=== PATIENT | male | born 1960 | race Two or more races ===

== ENCOUNTER 2020-02-12 15:28 | Emergency (ER) | payer MEDICAID, SELFPAY ==
[2020-02-12 15:46] VITALS: BP 140/86; BP 155/97; PULSE 84; PULSE 90; RESP 16; TEMP 36.7; O2SAT 95; O2SAT 98; BMI 58.6
--- NOTE | 2020-02-12 16:33 | ED_ITS ---
HPI - Headache General Chief Complaint: Headache Stated Complaint: BLURRED VISION FROM [facility] Time Seen by Provider: 02/12/20 16:33 Source: patient Mode of arrival: ambulatory Limitations: no limitations History of Present Illness HPI Narrative: Last night had headache and noticed wavy vision in right vision MD elicited complaint: headache and migraine Pertinent past history: hypertension Onset (ago): hour(s) (12) Location: left and frontal Severity: moderate Quality & Timing: throbbing Relieving factors: other (ASA) Context: occurred at rest Related Data Previous Rx's Medication Instructions Recorded naproxen [Naprosyn] 500 mg PO BID #20 tab 02/12/20 Allergies Allergy/AdvReac Type Severity Reaction Status Date / Time FRUIT, SKINS Allergy Intermediate MOUTH Uncoded 01/15/20 16:24 ITCHING grapes, almonds, Allergy Unknown itchiness Uncoded 07/18/17 00:00 strawberries, of mouth, nausea Review of Systems Constitutional: Constitutional: Reports no additional constitutional complaints Eyes: Eyes: Reports no additional eye complaints ENT: Denies dizziness Cardiovascular: Cardiovascular: Reports no additional cardiovascular complaints Respiratory: Respiratory: Reports as per HPI Gastrointestinal: Gastrointestinal: Reports no additional gastrointestinal complaints Musculoskeletal: Musculoskeletal: Reports no additional musculoskeletal complaints Integumentary/Breasts: Skin/Breast: Denies rash Neurologic: Reports system reviewed and no additional complaints, except as documented, Denies dizziness and Denies Sensory deficit (Neuro) Psychiatric: Psychiatric: Denies anxiety [facility] Past Medical History Medical History (Updated 02/12/20 @ 18:27 by Poncho Alicia MD) Cardiomyopathy HTN (hypertension) Surgical History (Updated 02/12/20 @ 15:53 by Beatriz Bustamante) Hx of appendectomy Social History Social History Smoked in Last 30 Days: No Use of substances other than those prescribed or required for medical reasons: No Advance Directives: No Advance Directives Information Provided: Yes Physical Exam Vital Signs: Vital Signs: Vital Signs Temp Pulse Resp BP Pulse Ox 02/12/20 18:20 98.3 F 77 16 170/84 H 02/12/20 15:46 98.1 F 84 16 155/97 H 95 Body Mass Index 58.6 Const: General: healthy appearing Nutritional Appearance: average body habitus Orientation/consciousness: oriented to person and patient oriented x3 Limitations: no limitations HENMT: Head: Yes normal to inspection Ears: external ears normal General nose exam: Normal external nose present Mouth: Normal oral and palatal mucosa present and oropharynx normal Throat: Yes posterior oropharynx normal Eyes: General: appearance normal, both eyes and all related structures Neck: Other: supple Neck: Yes normal visual inspection Chest: Chest palpation & inspection: normal inspection of the chest Resp: Auscultation: clear to auscultation bilaterally Cardio: Jugular venous distension: no JVD Rate: regular rate Rhythm: regular rhythm Heart sounds: S1 normal heart sound present and S2 normal heart sound present GI: Inspection: Yes normal to inspection Palpation (GI): Soft to palpation, nontender and No hepatosplenomegaly present Auscultation: normal bowel sounds : General: Yes no CVA tenderness Back/Spine/Pelvis: Back: no CVA tenderness Skin: General skin exam: no rashes or lesions noted Neuro: General: oriented to person and patient oriented x3 Cranial nerves: Yes CN's II-XII intact bilaterally Motor exam (neuro): 5/5 motor strength present throughout Sensory Exam: No Sensory deficit (Neuro) Extrem: General: Yes normal to inspection Psych: Appearance: grossly normal Course Course Course Narrative: headache much improved will dc home MDM - Headache MDM Narrative Medical decision making narrative: history most consistent with migraine, no mass or bleed were found Differential Diagnosis Differential diagnosis: Likely migraine and headache Lab Data Attestation: I reviewed the patient's lab results. Result diagrams: 02/12/20 17:00 02/12/20 17:00 Labs: Lab Results 02/12/20 02/12/20 Range/Units 17:00 17:00 WBC 13.9 H (4.8-10.8) X10*3/uL RBC 4.47 L (4.60-5.80) X10*6/uL Hgb 14.9 (14.0-18.0) g/dl Hct 43.2 (42-52) % MCV 96.6 (80-98) fL MCH 33.3 H (27.0-33.0) pg MCHC 34.5 (31.0-36.0) g/dl RDW 11.8 (11.0-16.0) % Plt Count 415 H (160-400) X10*3/uL MPV 10.4 (9.4-12.4) fL Immature Gran % (Auto) 0.9 H (0.0-0.4) % Neut % (Auto) 78.1 H (45-73) % Lymph % (Auto) 14.4 L (20-40) % [place] % (Auto) 5.8 (2-11) % Eos % (Auto) 0.4 (0-4) % Baso % (Auto) 0.4 (0-2) % Lymph # (Auto) 2.0 (1.2-4.9) X10*3/uL [place] # (Auto) 0.8 (0.1-1.2) X10*3/uL Eos # (Auto) 0.1 (0.0-0.4) X10*3/uL Baso # (Auto) 0.1 (0.0-0.2) X10*3/uL Abs Immat Gran (auto) 0.13 H (0.00-0.03) X10*3/uL Absolute Neuts (auto) 10.9 H (2.0-8.3) X10*3/uL Absolute Nucleated RBC 0.000 (0.0-0.012) X10*3/uL Nucleated RBC % (auto) 0.0 (0.0-0.2) /100WBC Sodium 135 (135-145) mmol/L Potassium 4.4 (3.3-5.1) mmol/l Chloride 101 (96-108) mmol/L Carbon Dioxide 29 (22-29) mmol/L Anion Gap 9 L (12-20) BUN 16 (9-16) mg/dL Creatinine 1.10 (0.5-1.4) mg/dL Estim Creat Clear Calc 118.4 Estimated GFR > 60 Random Glucose 106 (60-115) mg/dL Calcium 9.1 (8.4-10.2) mg/dL Discharge Plan Discharge Clinical Impression: Headache Qualifiers: Headache type: other vascular headache Qualified Code(s): G44.1 - Vascular head ache, not elsewhere classified Migraine Qualifiers: Migraine type: with aura Status migrainosus presence: without status migrainosus Intractability: not intractable Qualified Code(s): G43.109 - Migraine with aura, not intractable, without status migrainosus Patient Disposition: Home, Self-Care Instructions: Migraine Headache (ED) Prescriptions: New naproxen [Naprosyn] 500 mg tablet 500 mg PO BID Qty: 20 RF: 0 Referrals: Name,MD Kalia [Primary Care Provider] - 2 days
--- NOTE | 2020-02-12 16:39 | CT_ITS ---
EXAMINATION: CT HEAD WITHOUT CONTRAST CLINICAL INFORMATION: Headache COMPARISON: None TECHNIQUE: Contiguous axial imaging was performed from the skull base to vertex without intravenous administration of contrast. Additional 2-D coronal and sagittal reformatted images are generated on the CT workstation and uploaded to PACS. DOSE LOWERING TECHNIQUES: This CT examination was performed using dose optimization techniques as appropriate, variously including the following: *Automated exposure control *Adjustment of mA and/or kV according to patient size (this includes techniques or standardized protocols for targeted exams where dose is matched to indication/reason for exam; i.e. extremities or head) *Use of iterative reconstruction technique DLP: 715 mGy-cm FINDINGS: There is no intracranial hemorrhage, hematoma, or extra-axial fluid collection. The ventricles are normal in size. There is no hydrocephalus, edema, or mass effect. The currie-white matter differentiation appears symmetric. There is no visible acute territorial infarct or mass lesion. There are incidental falx calcifications. The calvarium appears intact. There is no pneumocephalus or orbital emphysema. The visualized sinuses and middle ears and mastoid air cells show no significant mucosal thickening. There are no air-fluid levels. IMPRESSION: Normal noncontrast CT head.
[2020-02-12] MEDS: 0.9 % Sodium Chloride 500 ML IV (17:01)
[2020-02-12] MEDS: Ketorolac Tromethamine 30 MG/ML VIAL IVPUSH (17:01)
[2020-02-12 17:10] LABS: MANUAL DIFF FLAG NO
[2020-02-12 17:14] LABS: Basophils Absolute Auto 0.1 X10*3/uL (0.0-0.2); Basophils Percent Auto 0.4 % (0-2); Eosinophils Absolute Auto 0.1 X10*3/uL (0.0-0.4); Eosinophils Percent Auto 0.4 % (0-4); Hematocrit 43.2 % (42-52); Hemoglobin 14.9 g/dl (14.0-18.0); Imm Gran Abs Auto 0.13 X10*3/uL (0.00-0.03); Imm Gran Pct Auto 0.9 % (0.0-0.4); Lymphocytes Percent Auto 14.4 % (20-40); Mean Corpuscular HGB Conc 34.5 g/dl (31.0-36.0); Mean Corpuscular Hemoglobin 33.3 pg (27.0-33.0); Mean Corpuscular Volume 96.6 fL (80-98); Mean Platelet Volume 10.4 fL (9.4-12.4); Monocytes Absolute Auto 0.8 X10*3/uL (0.1-1.2); Monocytes Percent Auto 5.8 % (2-11); Neutrophils Absolute Auto 10.9 X10*3/uL (2.0-8.3); Neutrophils Percent Auto 78.1 % (45-73); Platelet Count 415 X10*3/uL (160-400); Red Blood Count 4.47 X10*6/uL (4.60-5.80); Red Cell Distribution Width 11.8 % (11.0-16.0); White Blood Count 13.9 X10*3/uL (4.8-10.8)
[2020-02-12 17:43] LABS: Anion Gap 9 (12-20); Blood Urea Nitrogen 16 mg/dL (9-16); Calcium 9.1 mg/dL (8.4-10.2); Carbon Dioxide 29 mmol/L (22-29); Chloride 101 mmol/L (96-108); Creatinine Clr Calc Pharmacy 118.4; Estimated Glomerular Filt Rate > 60; Glucose Random 106 mg/dL (60-115); Potassium 4.4 mmol/l (3.3-5.1); Sodium 135 mmol/L (135-145)
[2020-02-12 18:20] VITALS: BP 170/84; PULSE 77; RESP 16; TEMP 36.8
[2020-02-12 18:39] VITALS: BP 149/79
== END 2020-02-12 18:42 | disposition home or self-care (01) ==
PROVIDERS: Emergency Provider Emergency Medicine; PCP Internal Medicine Geriatric Medicine
DX: G43.109 Migraine with aura, not intractable, without status migrainosus (principal); I10 Essential (primary) hypertension
CPT/HCPCS: 36415; 70450; 80048; 85025; 96361; 96374; 99284; J1885

== ENCOUNTER 2021-11-08 00:31 | Emergency (ER) | payer MEDICAID, SELFPAY ==
--- NOTE | 2021-11-08 | ECG_ITS ---
Test Reason : HTN Blood Pressure : / mmHG Vent. Rate : 072 BPM Atrial Rate : 072 BPM P-R Int : 148 ms QRS Dur : 096 ms QT Int : 388 ms P-R-T Axes : 058 006 006 degrees QTc Int : 424 ms Normal sinus rhythm Minimal voltage criteria for LVH, may be normal variant ( R in aVL ) Borderline ECG When compared with ECG of 23-NOV-2014 18:20, No significant change was found Referred By: Generic ED Physician Electronically Signed By:FAITH HERNANDEZ MD
[2021-11-08 00:55] VITALS: BP 222/106; PULSE 94; RESP 18; TEMP 36.8; O2SAT 98; BMI 27.3
[2021-11-08 01:04] LABS: MANUAL DIFF FLAG NO
[2021-11-08 01:15] LABS: Basophils Absolute Auto 0.1 X10*3/uL (0.0-0.2); Basophils Percent Auto 0.5 % (0-2); Eosinophils Absolute Auto 0.4 X10*3/uL (0.0-0.4); Eosinophils Percent Auto 3.8 % (0-4); Hematocrit 44.3 % (42.0-52.0); Hemoglobin 15.1 g/dl (14.0-18.0); Imm Gran Abs Auto 0.02 X10*3/uL (0.00-0.03); Imm Gran Pct Auto 0.2 % (0.0-0.4); Lymphocytes Absolute Auto 3.5 X10*3/uL (1.2-4.9); Lymphocytes Percent Auto 30.6 % (20-40); Mean Corpuscular HGB Conc 34.1 g/dl (31.0-36.0); Mean Corpuscular Hemoglobin 32.4 pg (27.0-33.0); Mean Corpuscular Volume 95.1 fL (80.0-98.0); Monocytes Absolute Auto 0.9 X10*3/uL (0.1-1.2); Monocytes Percent Auto 8.3 % (2-11); Neutrophils Absolute Auto 6.4 x10*3/uL (2.0-8.3); Neutrophils Percent Auto 56.6 % (45-73); Platelet Count 243 X10*3/uL (160-400); Red Blood Count 4.66 X10*6/uL (4.60-5.80); Red Cell Distribution Width 12.2 % (11.0-16.0); White Blood Count 11.3 X10*3/uL (4.8-10.8)
[2021-11-08 01:33] LABS: Alanine Aminotransferase 54 U/L (0-40); Albumin Level 4.4 g/dL (3.5-5.0); Alkaline Phosphatase 67 U/L (39-117); Anion Gap 16 (12-20); Aspartate Amino Transferase 35 U/L (5-37); Bilirubin Total 0.5 mg/dL (0.0-1.0); Blood Urea Nitrogen 16 mg/dL (9-16); Calcium 9.2 mg/dL (8.4-10.2); Carbon Dioxide 21 mmol/L (22-29); Chloride 103 mmol/L (96-108); Creatinine Clr Calc Pharmacy 81.8; Estimated Glomerular Filt Rate > 60; Glucose Random 118 mg/dL (60-115); Potassium 3.6 mmol/L (3.3-5.1); Sodium 136 mmol/L (135-145); Total Protein 7.5 g/dL (6.5-8.0)
[2021-11-08 01:34] LABS: Troponin-I High Sensitivity 7.8 ng/L (<3.5-35.0)
[2021-11-08 04:35] VITALS: BP 199/70; PULSE 78
[2021-11-08 04:38] VITALS: BP 210/93
--- NOTE | 2021-11-08 05:03 | ED.GENADULT ---
HPI - General Adult General Chief complaint: General Medical Stated complaint: High BP Time Seen by Provider: 11/08/21 05:03 History of Present Illness HPI narrative: Patient is a 60-year-old male with a history of hypertension. Lost to follow-up have not been taking his blood pressure medicine. Presented today after checking his blood pressure noticing a 200/100. Patient came to the emergency department no chest pain or shortness of breath no nausea no vomiting. No systemic complaints. Patient from home. Related Data Previous Rx's Medication Instructions Recorded naproxen 500 mg tablet (Naprosyn) 500 mg PO BID #20 tabs 02/12/20 Allergies Allergy/AdvReac Type Severity Reaction Status Date / Time FRUIT, SKINS Allergy Intermediate MOUTH Uncoded 01/15/20 16:24 ITCHING grapes, almonds, Allergy Unknown itchiness Uncoded 07/18/17 00:00 strawberries, of mouth, nausea Review of Systems Review of Systems: No fever no chills no cough no congestion or upper respiratory symptoms. Yes all other systems are reviewed and are negative PMFSH Past Medical History Attestation statement: The following information was validated with the patient. Medical History Cardiomyopathy HTN (hypertension) Surgical History Hx of appendectomy Social History Social History Advance Directives: No Physical Exam ED Vital Signs: Vital Signs - 24 hr 11/08/21 00:55 11/08/21 04:35 11/08/21 04:38 Temperature 98.3 F Pulse Rate 94 78 Respiratory Rate 18 Blood Pressure 222/106 H 199/70 H 210/93 H Pulse Oximetry 98 Oxygen Delivery Method Room Air 11/08/21 05:51 11/08/21 06:22 Temperature Pulse Rate 74 88 Respiratory Rate 18 18 Blood Pressure 171/84 H 164/80 H Pulse Oximetry 99 95 Oxygen Delivery Method Room Air Room Air BMI result Body Mass Index 27.3 Appearance: Alert. Oriented X3. No acute distress. Eyes: Pupils equal, round and reactive to light. ENT: Pharynx normal. Neck: Normal inspection. Neck supple. No lymph nodes noted. No crepitus CVS: Normal heart rate and rhythm. Pulses normal. Normal S1 and S2 Respiratory: No respiratory distress. Breath sounds normal. No Wheezing. No rales Abdomen: Soft and nontender. No rigidity. No distention. good BS x4 Skin: Skin warm and dry. Normal skin color. Normal skin turgor. Extremities: No lower extremity edema. Neurovascular intact to all extremities. No Lacerations. No Rash Neuro: Oriented X 3. No motor deficit. No sensory deficit. Moving all extermities. No slurred speech Medical Decision Making MDM Narrative Medical decision making narrative: Will give patient his lisinopril. Patient's electrolytes are unremarkable. Will suggest the patient get a repeat blood pressure check in 2 days. He is in stable condition. after giving patient his medication his blood pressure is down to 160/80. Will discharge patient home. A prescription for lisinopril was given. Patient told to follow up in clinic for repeat blood pressure check in 2 days. Currently in stable condition. Patient's EKG showed a sinus pattern heart rate is 90 [place] QRS QT within normal limits is no acute ST segment elevation noted. Lab Data Result diagrams: 11/08/21 01:00 11/08/21 01:00 Labs: Lab Results 11/08/21 11/08/21 11/08/21 Range/Units 01:00 01:00 01:00 WBC 11.3 H (4.8-10.8) X10*3/uL RBC 4.66 (4.60-5.80) X10*6/uL Hgb 15.1 (14.0-18.0) g/dl Hct 44.3 (42.0-52.0) % MCV 95.1 (80.0-98.0) fL MCH 32.4 (27.0-33.0) pg MCHC 34.1 (31.0-36.0) g/dl RDW 12.2 (11.0-16.0) % Plt Count 243 (160-400) X10*3/uL MPV 10.0 (9.4-12.4) fL Immature Gran % (Auto) 0.2 (0.0-0.4) % Neut % (Auto) 56.6 (45-73) % Lymph % (Auto) 30.6 (20-40) % [place] % (Auto) 8.3 (2-11) % Eos % (Auto) 3.8 (0-4) % Baso % (Auto) 0.5 (0-2) % Lymph # (Auto) 3.5 (1.2-4.9) X10*3/uL [place] # (Auto) 0.9 (0.1-1.2) X10*3/uL Eos # (Auto) 0.4 (0.0-0.4) X10*3/uL Baso # (Auto) 0.1 (0.0-0.2) X10*3/uL Abs Immat Gran (auto) 0.02 (0.00-0.03) X10*3/uL Absolute Neuts (auto) 6.4 (2.0-8.3) x10*3/uL Absolute Nucleated RBC 0.000 (0.0-0.012) X10*3/uL Nucleated RBC % (auto) 0.0 (0.0-0.2) /100WBC Sodium 136 (135-145) mmol/L Potassium 3.6 (3.3-5.1) mmol/L Chloride 103 (96-108) mmol/L Carbon Dioxide 21 L (22-29) mmol/L Anion Gap 16 (12-20) BUN 16 (9-16) mg/dL Creatinine 0.94 (0.5-1.4) mg/dL Estim Creat Clear Calc 81.8 Estimated GFR > 60 Random Glucose 118 H (60-115) mg/dL Calcium 9.2 (8.4-10.2) mg/dL Total Bilirubin 0.5 (0.0-1.0) mg/dL AST 35 (5-37) U/L ALT 54 H (0-40) U/L Alkaline Phosphatase 67 (39-117) U/L Troponin I High Sens 7.8 (<3.5-35.0) ng/L Total Protein 7.5 (6.5-8.0) g/dL Albumin 4.4 (3.5-5.0) g/dL Discharge Plan Discharge Clinical Impression: Hypertension Patient Disposition: Home, Self-Care Instructions: Hypertension (ED) Prescriptions: No Action naproxen [Naprosyn] 500 mg tablet 500 mg PO BID Qty: 20 0RF [facility] -
[2021-11-08] MEDS: lisinopriL 20 MG TABLET PO (05:18)
--- NOTE | 2021-11-08 05:19 | PC.NURSE ---
pt a&ox3, vss - hypertensive, pt denies pain. medicated per provider order.
[2021-11-08 05:51] VITALS: BP 171/84; PULSE 74; RESP 18; O2SAT 99
[2021-11-08 06:22] VITALS: BP 164/80; PULSE 88; RESP 18; O2SAT 95
== END 2021-11-08 07:38 | disposition home or self-care (01) ==
PROVIDERS: Emergency Provider Emergency Medicine Emergency Medical Services
DX: I10 Essential (primary) hypertension (principal); Z79.899 Other long term (current) drug therapy
CPT/HCPCS: 36415; 80053; 84484; 85025; 93005; 99283; 99284

== ENCOUNTER 2022-08-18 15:01 | Emergency (ER) | payer MEDICAID, SELFPAY ==
[2022-08-18 15:12] VITALS: BP 204/91; PULSE 97; RESP 18; TEMP 36.8; O2SAT 99; BMI 29.7
--- NOTE | 2022-08-18 15:13 | ECG_ITS ---
Test Reason : high bp Blood Pressure : / mmHG Vent. Rate : 092 BPM Atrial Rate : 092 BPM P-R Int : 144 ms QRS Dur : 098 ms QT Int : 334 ms P-R-T Axes : 049 007 035 degrees QTc Int : 413 ms Normal sinus rhythm Minimal voltage criteria for LVH, may be normal variant ( R in aVL ) Nonspecific T wave abnormality Abnormal ECG When compared to the previous EKG of 08 november 2021, Nonspecific ST and T wave abnormality present Referred By: Brett Quintero Electronically Signed By:KENDRA LIU
--- NOTE | 2022-08-18 15:14 | ED_ITS ---
HPI - General Adult General Chief complaint: General Medical <Brett Quintero - Last Filed: 08/18/22 15:16> Stated complaint: High Blood Pressure <Brett Quintero - Last Filed: 08/18/22 15:16> Time Seen by Provider: 08/18/22 20:09 <Brett Quintero - Last Filed: 08/18/22 15:16> Source: patient <Ady Hou MD - Last Filed: 08/18/22 22:14> Mode of arrival: ambulatory <Ady Hou MD - Last Filed: 08/18/22 22:14> Limitations: no limitations <Ady Hou MD - Last Filed: 08/18/22 22:14> History of Present Illness HPI narrative: Patient history of hypertension does not have any PCP unable to get the refills taking lisinopril 20 mg as needed he took today at noon time for high blood pressure of 180s/100s check the blood pressure was still elevated on arrival patient's blood pressure 204/91 no nausea no vomiting no chest pain or palpitation <Ady Hou MD - Last Filed: 08/18/22 22:14> Related Data Home medications: Previous Rx's Medication Instructions Recorded naproxen 500 mg tablet (Naprosyn) 500 mg PO BID #20 tabs 02/12/20 lisinopril 20 mg tablet 20 mg PO DAILY #30 tabs 11/08/21 hydrochlorothiazide 12.5 mg tablet 12.5 mg PO QAM #90 tabs 08/18/22 lisinopril 40 mg tablet 40 mg PO DAILY #90 tabs 08/18/22 <Brett Quintero - Last Filed: 08/18/22 15:16> Allergies/adverse reactions: Allergies Allergy/AdvReac Type Severity Reaction Status Date / Time FRUIT, SKINS Allergy Intermediate MOUTH Uncoded 01/15/20 16:24 ITCHING grapes, almonds, Allergy Unknown itchiness Uncoded 07/18/17 00:00 strawberries, of mouth, nausea <Brett Quintero - Last Filed: 08/18/22 15:16> Review of Systems Review of Systems: Yes all other systems are reviewed and are negative <Ady Hou MD - Last Filed: 08/18/22 22:14> FOR[facility]LY [facility] Past Medical History Medical History: Medical History Cardiomyopathy HTN (hypertension) <Brett Quintero - Last Filed: 08/18/22 15:16> Surgical History: Surgical History Hx of appendectomy <Brett Quintero - Last Filed: 08/18/22 15:16> Social History Social History: Social History Alcohol intake: current Alcohol intake frequency: a few times a week Alcohol type: beer and hard liquor Smoked in Last 30 Days: No Use of substances other than those prescribed or required for medical reasons: No Advance Directives: No Advance Directives Information Provided: No <Brett Quintero - Last Filed: 08/18/22 15:16> Physical Exam ED Vital Signs: Vital Signs - 24 hr 08/18/22 15:12 08/18/22 20:27 08/18/22 21:29 Temperature 98.2 F 98.2 F 98.5 F Pulse Rate 97 75 77 Respiratory Rate 18 18 18 Blood Pressure 204/91 H 196/98 H 171/83 H Pulse Oximetry 99 98 99 Oxygen Delivery Method Room Air Room Air BMI result Body Mass Index 29.7 <Brett Quintero - Last Filed: 08/18/22 15:16> Vital Signs - 24 hr 08/18/22 15:12 08/18/22 20:27 08/18/22 21:29 Temperature 98.2 F 98.2 F 98.5 F Pulse Rate 97 75 77 Respiratory Rate 18 18 18 Blood Pressure 204/91 H 196/98 H 171/83 H Pulse Oximetry 99 98 99 Oxygen Delivery Method Room Air Room Air BMI result Body Mass Index 29.7 <Ady Hou MD - Last Filed: 08/18/22 22:14> Appearance: Alert. Oriented X3. No acute distress. Eyes: PERRLA, ENT: Pharynx normal. Oral Mucosa moist Neck: Normal inspection. Neck supple. CVS: Normal heart rate and rhythm. Pulses normal. Respiratory: No respiratory distress. Equal air entry bilateral, no wheezing/rales/rhonchi Abdomen: Soft and nontender. Bowel sounds are present, no mass palpable, no CVA tenderness Skin: Skin warm and dry. Normal skin color. Normal skin turgor. Extremities: No lower extremity edema. No calf tenderness Neuro: Oriented X 3. No motor deficit. No sensory deficit.No cerebellar signs , cranial nerves II-XII intact <Ady Hou MD - Last Filed: 08/18/22 22:14> Course Course Course Narrative: RME- 61-year-old male with past medical history significant for hypertension taking lisinopril 20 mg daily presents for evaluation of high blood pressure. He also complained of chest pain earlier but no current chest pain. Will plan for labs, EKG. Patient's blood pressure in triage 204/91. Patient admits to be noncompliant with his medication as he does not have a doctor currently <Brett Quintero - Last Filed: 08/18/22 15:16> Medications Administered Discontinued Medications Generic Name Dose Route Start Last Admin Trade Name Freq PRN Reason Stop Dose Admin Clonidine HCl 0.2 mg 08/18/22 20:55 08/18/22 21:27 Clonidine Hcl 0.2 Mg Tablet PO 08/18/22 20:56 0.2 mg ONCE ONE Administration Protocol Lisinopril 20 mg 08/18/22 20:56 08/18/22 21:27 Lisinopril 20 Mg Tablet PO 08/18/22 20:57 20 mg ONCE ONE Administration Protocol <Brett Quintero - Last Filed: 08/18/22 15:16> Medications Administered Discontinued Medications Generic Name Dose Route Start Last Admin Trade Name Freq PRN Reason Stop Dose Admin Clonidine HCl 0.2 mg 08/18/22 20:55 08/18/22 21:27 Clonidine Hcl 0.2 Mg Tablet PO 08/18/22 20:56 0.2 mg ONCE ONE Administration Protocol Lisinopril 20 mg 08/18/22 20:56 08/18/22 21:27 Lisinopril 20 Mg Tablet PO 08/18/22 20:57 20 mg ONCE ONE Administration Protocol <Ady Hou MD - Last Filed: 08/18/22 22:14> Medical Decision Making Medical Decision Making MDM Narrative: Patient blood pressure improved to 171/83 labs are stable will increase dose of lisinopril to 40 mg and add hydrochlorothiazide advised to follow-up with PCP <Ady Hou MD - Last Filed: 08/18/22 22:14> Lab Data [facility] Lab Attestation statement: I reviewed the patient's lab results. <Ady Hou MD - Last Filed: 08/18/22 22:14> Result Diagrams: 08/18/22 16:01 08/18/22 16:44 <Brett Quintero - Last Filed: 08/18/22 15:16> Labs: Lab Results 08/18/22 08/18/22 08/18/22 Range/Units 16:01 16:01 16:01 WBC 9.3 (4.8-10.8) X10*3/uL RBC 4.63 (4.60-5.80) X10*6/uL Hgb 15.2 (14.0-18.0) g/dl Hct 44.6 (42.0-52.0) % MCV 96.3 (80.0-98.0) fL MCH 32.8 (27.0-33.0) pg MCHC 34.1 (31.0-36.0) g/dl RDW 12.0 (11.0-16.0) % Plt Count TNP MPV 10.9 (9.4-12.4) fL Immature Gran % (Auto) 0.1 (0.0-0.4) % Neut % (Auto) 73.3 H (45-73) % Lymph % (Auto) 15.7 L (20-40) % [place] % (Auto) 7.7 (2-11) % Eos % (Auto) 2.7 (0-4) % Baso % (Auto) 0.5 (0-2) % Lymph # (Auto) 1.5 (1.2-4.9) X10*3/uL [place] # (Auto) 0.7 (0.1-1.2) X10*3/uL Eos # (Auto) 0.3 (0.0-0.4) X10*3/uL Baso # (Auto) 0.1 (0.0-0.2) X10*3/uL Abs Immat Gran (auto) 0.01 (0.00-0.03) X10*3/uL Absolute Neuts (auto) 6.8 (2.0-8.3) x10*3/uL Absolute Nucleated RBC 0.000 (0.0-0.012) X10*3/uL Nucleated RBC % (auto) 0.0 (0.0-0.2) /100WBC PT 12.4 (10.0-13.1) SEC INR 1.1 (0.9-1.1) APTT 32.6 (26.0-36.4) SEC Sodium (135-145) mmol/L Potassium (3.3-5.1) mmol/L Chloride (96-108) mmol/L Carbon Dioxide (22-29) mmol/L Anion Gap (12-20) BUN (9-16) mg/dL Creatinine (0.5-1.4) mg/dL Estim Creat Clear Calc Estimated GFR Random Glucose (60-115) mg/dL Calcium (8.4-10.2) mg/dL Total Bilirubin (0.0-1.0) mg/dL AST (5-37) U/L ALT (0-40) U/L Alkaline Phosphatase (39-117) U/L Troponin I High Sens 6.3 (<3.5-35.0) ng/L Total Protein (6.5-8.0) g/dL Albumin (3.5-5.0) g/dL Lipase (8-78) U/L 08/18/22 Range/Units 16:44 WBC (4.8-10.8) X10*3/uL RBC (4.60-5.80) X10*6/uL Hgb (14.0-18.0) g/dl Hct (42.0-52.0) % MCV (80.0-98.0) fL MCH (27.0-33.0) pg MCHC (31.0-36.0) g/dl RDW (11.0-16.0) % Plt Count MPV (9.4-12.4) fL Immature Gran % (Auto) (0.0-0.4) % Neut % (Auto) (45-73) % Lymph % (Auto) (20-40) % [place] % (Auto) (2-11) % Eos % (Auto) (0-4) % Baso % (Auto) (0-2) % Lymph # (Auto) (1.2-4.9) X10*3/uL [place] # (Auto) (0.1-1.2) X10*3/uL Eos # (Auto) (0.0-0.4) X10*3/uL Baso # (Auto) (0.0-0.2) X10*3/uL Abs Immat Gran (auto) (0.00-0.03) X10*3/uL Absolute Neuts (auto) (2.0-8.3) x10*3/uL Absolute Nucleated RBC (0.0-0.012) X10*3/uL Nucleated RBC % (auto) (0.0-0.2) /100WBC PT (10.0-13.1) SEC INR (0.9-1.1) APTT (26.0-36.4) SEC Sodium 137 (135-145) mmol/L Potassium 4.0 (3.3-5.1) mmol/L Chloride 102 (96-108) mmol/L Carbon Dioxide 26 (22-29) mmol/L Anion Gap 13 (12-20) BUN 18 H (9-16) mg/dL Creatinine 1.16 (0.5-1.4) mg/dL Estim Creat Clear Calc 71.0 Estimated GFR > 60 Random Glucose 104 (60-115) mg/dL Calcium 9.5 (8.4-10.2) mg/dL Total Bilirubin 0.3 (0.0-1.0) mg/dL AST 39 H (5-37) U/L ALT 63 H (0-40) U/L Alkaline Phosphatase 65 (39-117) U/L Troponin I High Sens (<3.5-35.0) ng/L Total Protein 7.5 (6.5-8.0) g/dL Albumin 4.4 (3.5-5.0) g/dL Lipase 40 (8-78) U/L <Brett Quintero - Last Filed: 08/18/22 15:16> Lab Results 08/18/22 08/18/22 08/18/22 Range/Units 16:01 16:01 16:01 WBC 9.3 (4.8-10.8) X10*3/uL RBC 4.63 (4.60-5.80) X10*6/uL Hgb 15.2 (14.0-18.0) g/dl Hct 44.6 (42.0-52.0) % MCV 96.3 (80.0-98.0) fL MCH 32.8 (27.0-33.0) pg MCHC 34.1 (31.0-36.0) g/dl RDW 12.0 (11.0-16.0) % Plt Count TNP MPV 10.9 (9.4-12.4) fL Immature Gran % (Auto) 0.1 (0.0-0.4) % Neut % (Auto) 73.3 H (45-73) % Lymph % (Auto) 15.7 L (20-40) % [place] % (Auto) 7.7 (2-11) % Eos % (Auto) 2.7 (0-4) % Baso % (Auto) 0.5 (0-2) % Lymph # (Auto) 1.5 (1.2-4.9) X10*3/uL [place] # (Auto) 0.7 (0.1-1.2) X10*3/uL Eos # (Auto) 0.3 (0.0-0.4) X10*3/uL Baso # (Auto) 0.1 (0.0-0.2) X10*3/uL Abs Immat Gran (auto) 0.01 (0.00-0.03) X10*3/uL Absolute Neuts (auto) 6.8 (2.0-8.3) x10*3/uL Absolute Nucleated RBC 0.000 (0.0-0.012) X10*3/uL Nucleated RBC % (auto) 0.0 (0.0-0.2) /100WBC PT 12.4 (10.0-13.1) SEC INR 1.1 (0.9-1.1) APTT 32.6 (26.0-36.4) SEC Sodium (135-145) mmol/L Potassium (3.3-5.1) mmol/L Chloride (96-108) mmol/L Carbon Dioxide (22-29) mmol/L Anion Gap (12-20) BUN (9-16) mg/dL Creatinine (0.5-1.4) mg/dL Estim Creat Clear Calc Estimated GFR Random Glucose (60-115) mg/dL Calcium (8.4-10.2) mg/dL Total Bilirubin (0.0-1.0) mg/dL AST (5-37) U/L ALT (0-40) U/L Alkaline Phosphatase (39-117) U/L Troponin I High Sens 6.3 (<3.5-35.0) ng/L Total Protein (6.5-8.0) g/dL Albumin (3.5-5.0) g/dL Lipase (8-78) U/L 08/18/22 Range/Units 16:44 WBC (4.8-10.8) X10*3/uL RBC (4.60-5.80) X10*6/uL Hgb (14.0-18.0) g/dl Hct (42.0-52.0) % MCV (80.0-98.0) fL MCH (27.0-33.0) pg MCHC (31.0-36.0) g/dl RDW (11.0-16.0) % Plt Count MPV (9.4-12.4) fL Immature Gran % (Auto) (0.0-0.4) % Neut % (Auto) (45-73) % Lymph % (Auto) (20-40) % [place] % (Auto) (2-11) % Eos % (Auto) (0-4) % Baso % (Auto) (0-2) % Lymph # (Auto) (1.2-4.9) X10*3/uL [place] # (Auto) (0.1-1.2) X10*3/uL Eos # (Auto) (0.0-0.4) X10*3/uL Baso # (Auto) (0.0-0.2) X10*3/uL Abs Immat Gran (auto) (0.00-0.03) X10*3/uL Absolute Neuts (auto) (2.0-8.3) x10*3/uL Absolute Nucleated RBC (0.0-0.012) X10*3/uL Nucleated RBC % (auto) (0.0-0.2) /100WBC PT (10.0-13.1) SEC INR (0.9-1.1) APTT (26.0-36.4) SEC Sodium 137 (135-145) mmol/L Potassium 4.0 (3.3-5.1) mmol/L Chloride 102 (96-108) mmol/L Carbon Dioxide 26 (22-29) mmol/L Anion Gap 13 (12-20) BUN 18 H (9-16) mg/dL Creatinine 1.16 (0.5-1.4) mg/dL Estim Creat Clear Calc 71.0 Estimated GFR > 60 Random Glucose 104 (60-115) mg/dL Calcium 9.5 (8.4-10.2) mg/dL Total Bilirubin 0.3 (0.0-1.0) mg/dL AST 39 H (5-37) U/L ALT 63 H (0-40) U/L Alkaline Phosphatase 65 (39-117) U/L Troponin I High Sens (<3.5-35.0) ng/L Total Protein 7.5 (6.5-8.0) g/dL Albumin 4.4 (3.5-5.0) g/dL Lipase 40 (8-78) U/L <Ady Hou MD - Last Filed: 08/18/22 22:14> Discharge Plan Discharge Clinical Impression: Hypertension <Brett Quintero - Last Filed: 08/18/22 15:16> Patient Disposition: Home, Self-Care <Brett Quintero - Last Filed: 08/18/22 15:16> Instructions: Chronic Hypertension (ED) <Brett Quintero - Last Filed: 08/18/22 15:16> Additional Instructions: Take blood pressure medicine daily on time Check blood pressure should be less than 130/85 Follow with PCP <Brett Quintero - Last Filed: 08/18/22 15:16> Prescriptions: New lisinopril 40 mg tablet 40 mg PO DAILY Qty: 90 3RF hydrochlorothiazide 12.5 mg tablet 12.5 mg PO QAM Qty: 90 2RF No Action naproxen [Naprosyn] 500 mg tablet 500 mg PO BID Qty: 20 0RF lisinopril 20 mg tablet 20 mg PO DAILY Qty: 30 0RF <Brett Quintero - Last Filed: 08/18/22 15:16>
[2022-08-18 16:06] LABS: MANUAL DIFF FLAG NO
--- NOTE | 2022-08-18 16:06 | MHC.EDTECH ---
pt ekg done and was read by provider ,blood drawn and sent to lab .
[2022-08-18 16:12] LABS: PLT CLUMP 1; SCAN SMEAR FLAG 1
[2022-08-18 16:14] LABS: Basophils Absolute Auto 0.1 X10*3/uL (0.0-0.2); Basophils Percent Auto 0.5 % (0-2); Eosinophils Absolute Auto 0.3 X10*3/uL (0.0-0.4); Eosinophils Percent Auto 2.7 % (0-4); Hematocrit 44.6 % (42.0-52.0); Hemoglobin 15.2 g/dl (14.0-18.0); Imm Gran Abs Auto 0.01 X10*3/uL (0.00-0.03); Imm Gran Pct Auto 0.1 % (0.0-0.4); Lymphocytes Absolute Auto 1.5 X10*3/uL (1.2-4.9); Lymphocytes Percent Auto 15.7 % (20-40); Mean Corpuscular HGB Conc 34.1 g/dl (31.0-36.0); Mean Corpuscular Hemoglobin 32.8 pg (27.0-33.0); Mean Corpuscular Volume 96.3 fL (80.0-98.0); Mean Platelet Volume 10.9 fL (9.4-12.4); Monocytes Absolute Auto 0.7 X10*3/uL (0.1-1.2); Monocytes Percent Auto 7.7 % (2-11); Neutrophils Absolute Auto 6.8 x10*3/uL (2.0-8.3); Neutrophils Percent Auto 73.3 % (45-73); Red Blood Count 4.63 X10*6/uL (4.60-5.80)
[2022-08-18 16:15] LABS: INTERNATIONAL NORM RATIO 1.1 (0.9-1.1); Prothrombin Time 12.4 SEC (10.0-13.1)
[2022-08-18 16:18] LABS: Partial Thromboplastin Time 32.6 SEC (26.0-36.4)
[2022-08-18 16:31] LABS: Troponin-I High Sensitivity 6.3 ng/L (<3.5-35.0)
[2022-08-18 16:54] LABS: White Blood Count 9.3 X10*3/uL (4.8-10.8)
[2022-08-18 17:08] LABS: Alanine Aminotransferase 63 U/L (0-40); Albumin Level 4.4 g/dL (3.5-5.0); Alkaline Phosphatase 65 U/L (39-117); Anion Gap 13 (12-20); Aspartate Amino Transferase 39 U/L (5-37); Bilirubin Total 0.3 mg/dL (0.0-1.0); Blood Urea Nitrogen 18 mg/dL (9-16); Calcium 9.5 mg/dL (8.4-10.2); Carbon Dioxide 26 mmol/L (22-29); Chloride 102 mmol/L (96-108); Estimated Glomerular Filt Rate > 60; Glucose Random 104 mg/dL (60-115); Lipase 40 U/L (8-78); Sodium 137 mmol/L (135-145); Total Protein 7.5 g/dL (6.5-8.0)
[2022-08-18 20:27] VITALS: BP 196/98; PULSE 75; RESP 18; TEMP 36.8; O2SAT 98
[2022-08-18] MEDS: lisinopriL 20 MG TABLET PO (21:27)
[2022-08-18] MEDS: cloNIDine HCL 0.2 MG TABLET PO (21:27)
[2022-08-18 21:29] VITALS: BP 171/83; PULSE 77; RESP 18; TEMP 36.9; O2SAT 99
[2022-08-18 22:23] VITALS: BP 152/85; PULSE 75; RESP 16; TEMP 36.7; O2SAT 99
== END 2022-08-18 22:25 | disposition home or self-care (01) ==
PROVIDERS: Physician Assistant; Emergency Provider Internal Medicine
DX: I16.0 Hypertensive urgency (principal); R94.31 Abnormal electrocardiogram [ECG] [EKG]; I10 Essential (primary) hypertension; Z79.899 Other long term (current) drug therapy
CPT/HCPCS: 36415; 80053; 83690; 84484; 85025; 85610; 85730; 93005; 99283; 99284

== ENCOUNTER 2022-08-31 11:47 | Emergency (ER) | payer MEDICAID, SELFPAY ==
--- NOTE | ~2022-08-31 | CT_ITS ---
EXAMINATION: CT HEAD WITHOUT CONTRAST CLINICAL INFORMATION: Left-sided facial numbness. COMPARISON: 02/12/[address] scan. TECHNIQUE: Contiguous axial imaging was performed from the skull base to vertex without intravenous administration of contrast. Coronal and sagittal reformatted images were obtained. This CT examination was performed using dose optimization techniques as appropriate, variously including the following: *Automated exposure control *Adjustment of mA and/or kV according to patient size (this includes techniques or standardized protocols for targeted exams where dose is matched to indication/reason for exam; i.e. extremities or head) *Use of iterative reconstruction technique DLP: 698 mGy-cm FINDINGS: The cortical sulci are normal. The lateral ventricles are symmetrical. The third and fourth ventricles are in their normal midline position. The basilar and prepontine cisterns are unremarkable. There is no acute intra or extracerebral abnormality. There is no mass effect or midline shift. Sections through the bony calvarium are unremarkable. The paranasal sinuses are clear. The bony orbits and orbital contents are unremarkable. CT/CT head/brain wo IV con IMPRESSION: No acute intracranial pathology.
[2022-08-31 12:56] VITALS: BP 193/82; PULSE 82; RESP 16; TEMP 36.6; O2SAT 98; BMI 30.3
--- NOTE | 2022-08-31 12:57 | ED_ITS ---
HPI - General Adult General Chief complaint: Recheck/Abnormal Lab/Rx <SERJIO Winters Last Filed: 08/31/22 13:00> Stated complaint: high bp/ cheek numbness <SERJIO Winters Last Filed: 08/31/22 13:00> Time Seen by Provider: 08/31/22 17:05 <SERJIO Winters Last Filed: 08/31/22 13:00> Source: patient <DO Justino Galvan Last Filed: 08/31/22 17:25> Mode of arrival: ambulatory <DO Justino Galvan Last Filed: 08/31/22 17:25> Limitations: no limitations <DO Justino Galvan Last Filed: 08/31/22 17:25> History of Present Illness HPI narrative: Patient was seen here a few weeks ago for elevated blood pressure patient had a complete workup and had his lisinopril increased from 20 mg to 40 mg a day. Patient had been taking his medications for several weeks. Patient has not seen his primary care doctor for several years he denies any falls injuries chest pain nausea vomiting diarrhea. He was told to follow-up with his primary care doctor they did add recut clear hydrochlorothiazide to his medications as well he states he tried to contact his primary care doctor but the doctor had moved at which time he decided not follow-up with anybody he states he has not used his insurance card to find a new doctor and was hoping he could see a ca rdiologist on his visit today. <DO Justino Galvan Last Filed: 08/31/22 17:25> MD complaint: 61-year-old male presents emergency department concerned about his blood pr <DO Justino Galvan Last Filed: 08/31/22 17:25> Onset (ago): day(s) <DO Justino Galvan Last Filed: 08/31/22 17:25> Location: face <DO Justino Galvan Last Filed: 08/31/22 17:25> Related Data Home medications: Previous Rx's Medication Instructions Recorded hydrochlorothiazide 12.5 mg tablet 12.5 mg PO QAM #90 tabs 08/18/22 lisinopril 40 mg tablet 40 mg PO DAILY #90 tabs 08/18/22 <SERJIO Winters Last Filed: 08/31/22 13:00> Allergies/adverse reactions: Allergies Allergy/AdvReac Type Severity Reaction Status Date / Time FRUIT, SKINS Allergy Intermediate MOUTH Uncoded 08/31/22 17:19 ITCHING grapes, almonds, Allergy Unknown itchiness Uncoded 08/31/22 17:19 strawberries, of mouth, nausea <SERJIO Winters Last Filed: 08/31/22 13:00> Review of Systems Review of Systems: Review of systems: General: Patient denies any fever chills recent illness or falls Musculoskeletal: Denies back pain or body aches or other injuries HEENT: denies headache, runny nose, ear pain Respiratory: denies shortness of breath, cough Cardiovascular: no chest pain or palpitations : denies dysuria, frequency Abdomen: no nausea vomiting denies abdominal pain Extremities: no swelling, no pain Skin: no diaphoresis <DO Justino Galvan Last Filed: 08/31/22 17:25> Yes all other systems are reviewed and are negative <Kj Velazco DO - Last Filed: 08/31/22 17:25> PMFSH Past Medical History Medical History: Medical History Cardiomyopathy HTN (hypertension) <SERJIO Winters Last Filed: 08/31/22 13:00> Surgical History: Surgical History Hx of appendectomy <SERJIO Winters Last Filed: 08/31/22 13:00> Social History Social History: Social History Alcohol intake: current Alcohol intake frequency: a few times a month Alcohol type: beer and hard liquor <SERJIO Winters Last Filed: 08/31/22 13:00> Physical Exam ED Vital Signs: Vital Signs - 24 hr 08/31/22 12:56 Temperature 97.8 F Pulse Rate 82 Respiratory Rate 16 Blood Pressure 193/82 H Pulse Oximetry 98 Oxygen Delivery Method Room Air BMI result Body Mass Index 30.3 <SERJIO Winters Last Filed: 08/31/22 13:00> Vital Signs - 24 hr 08/31/22 12:56 Temperature 97.8 F Pulse Rate 82 Respiratory Rate 16 Blood Pressure 193/82 H Pulse Oximetry 98 Oxygen Delivery Method Room Air BMI result Body Mass Index 30.3 <DO Justino Galvan Last Filed: 08/31/22 17:25> General: Well-appearing well-nourished in no signs of distress HEENT: Normocephalic atraumatic Neck: No signs of JVD, no masses no tenderness or lymphadenopathy Cardiovascular: Regular rate and rhythm Respiratory: Clear to auscultation bilaterally Abdomen: Soft nontender no masses Extremities: Normal pedal pulses no signs of edema Skin: Dry warm no rashes Back: No tenderness full ROM <DO Justino Galvan Last Filed: 08/31/22 17:25> Course Course Course Narrative: 61 year old male with PMH of HTN presents to the ED L sided facial numbness and subjective hypertension for 1 day. Patient is medication compliant. Patient denies any other medical complaints PE: Hypertensive at 193/82, NIHSS 0 Plan: Labs, imaging, EKG <SERJIO Winters Last Filed: 08/31/22 13:00> Medical Decision Making Medical Decision Making [facility] Narrative: Patient seen in triage had a CT scan and labs done patient does have mild elevation of potassium from his baseline otherwise all his labs are normal do not think the patient needs admission. I did give him our resources to call a local PCP> <DO Justino Galvan Last Filed: 08/31/22 17:25> Differential Diagnosis Differential Diagnoses: The differential diagnosis associated with the presentation includes <DO Justino Galvan Last Filed: 08/31/22 17:25> Hypertension kidney injury dehydration headache acute brain injury subarachnoid hemorrhage <DO Justino Galvan Last Filed: 08/31/22 17:25> Admission/Observation Consideration of admission/observation: Escalation of care including admission/observation considered <DO Justino Galvan Last Filed: 08/31/22 17:25> Patient has normal labs patient does have elevated blood pressure but he has not been on medications now for 2 weeks I think he can use his insurance card today educate him on using and he is comfortable with plan to go home. <Kj Velazco DO - Last Filed: 08/31/22 17:25> Lab Data MDM Lab Attestation statement: I reviewed the patient's lab results. <Kj Velazco DO - Last Filed: 08/31/22 17:25> Result Diagrams: 08/31/22 13:11 08/31/22 13:11 <SERJIO Winters - Last Filed: 08/31/22 13:00> Labs: Lab Results 08/31/22 08/31/22 08/31/22 Range/Units 13:11 13:11 13:11 WBC 8.1 (4.8-10.8) X10*3/uL RBC 4.70 (4.60-5.80) X10*6/uL Hgb 15.4 (14.0-18.0) g/dl Hct 45.3 (42.0-52.0) % MCV 96.4 (80.0-98.0) fL MCH 32.8 (27.0-33.0) pg MCHC 34.0 (31.0-36.0) g/dl RDW 11.8 (11.0-16.0) % Plt Count 259 (160-400) X10*3/uL MPV 10.1 (9.4-12.4) fL Immature Gran % (Auto) 0.1 (0.0-0.4) % Neut % (Auto) 74.1 H (45-73) % Lymph % (Auto) 18.9 L (20-40) % [place] % (Auto) 5.2 (2-11) % Eos % (Auto) 1.1 (0-4) % Baso % (Auto) 0.6 (0-2) % Lymph # (Auto) 1.5 (1.2-4.9) X10*3/uL [place] # (Auto) 0.4 (0.1-1.2) X10*3/uL Eos # (Auto) 0.1 (0.0-0.4) X10*3/uL Baso # (Auto) 0.1 (0.0-0.2) X10*3/uL Abs Immat Gran (auto) 0.01 (0.00-0.03) X10*3/uL Absolute Neuts (auto) 6.0 (2.0-8.3) x10*3/uL Absolute Nucleated RBC 0.000 (0.0-0.012) X10*3/uL Nucleated RBC % (auto) 0.0 (0.0-0.2) /100WBC Sodium 138 (135-145) mmol/L Potassium 5.1 D (3.3-5.1) mmol/L Chloride 105 (96-108) mmol/L Carbon Dioxide 24 (22-29) mmol/L Anion Gap 14 (12-20) BUN 14 (9-16) mg/dL Creatinine 1.03 (0.5-1.4) mg/dL Estim Creat Clear Calc 80.6 Estimated GFR > 60 Random Glucose 105 (60-115) mg/dL Calcium 9.8 (8.4-10.2) mg/dL Magnesium 2.0 (1.6-2.6) mg/dL Total Bilirubin 0.6 (0.0-1.0) mg/dL AST 37 (5-37) U/L ALT 56 H (0-40) U/L Alkaline Phosphatase 64 (39-117) U/L Troponin I High Sens 4.7 (<3.5-35.0) ng/L Total Protein 8.2 H (6.5-8.0) g/dL Albumin 4.8 (3.5-5.0) g/dL <SERJIO Winters - Last Filed: 08/31/22 13:00> Lab Results 08/31/22 08/31/22 08/31/22 Range/Units 13:11 13:11 13:11 WBC 8.1 (4.8-10.8) X10*3/uL RBC 4.70 (4.60-5.80) X10*6/uL Hgb 15.4 (14.0-18.0) g/dl Hct 45.3 (42.0-52.0) % MCV 96.4 (80.0-98.0) fL MCH 32.8 (27.0-33.0) pg MCHC 34.0 (31.0-36.0) g/dl RDW 11.8 (11.0-16.0) % Plt Count 259 (160-400) X10*3/uL MPV 10.1 (9.4-12.4) fL Immature Gran % (Auto) 0.1 (0.0-0.4) % Neut % (Auto) 74.1 H (45-73) % Lymph % (Auto) 18.9 L (20-40) % [place] % (Auto) 5.2 (2-11) % Eos % (Auto) 1.1 (0-4) % Baso % (Auto) 0.6 (0-2) % Lymph # (Auto) 1.5 (1.2-4.9) X10*3/uL [place] # (Auto) 0.4 (0.1-1.2) X10*3/uL Eos # (Auto) 0.1 (0.0-0.4) X10*3/uL Baso # (Auto) 0.1 (0.0-0.2) X10*3/uL Abs Immat Gran (auto) 0.01 (0.00-0.03) X10*3/uL Absolute Neuts (auto) 6.0 (2.0-8.3) x10*3/uL Absolute Nucleated RBC 0.000 (0.0-0.012) X10*3/uL Nucleated RBC % (auto) 0.0 (0.0-0.2) /100WBC Sodium 138 (135-145) mmol/L Potassium 5.1 D (3.3-5.1) mmol/L Chloride 105 (96-108) mmol/L Carbon Dioxide 24 (22-29) mmol/L Anion Gap 14 (12-20) BUN 14 (9-16) mg/dL Creatinine 1.03 (0.5-1.4) mg/dL Estim Creat Clear Calc 80.6 Estimated GFR > 60 Random Glucose 105 (60-115) mg/dL Calcium 9.8 (8.4-10.2) mg/dL Magnesium 2.0 (1.6-2.6) mg/dL Total Bilirubin 0.6 (0.0-1.0) mg/dL AST 37 (5-37) U/L ALT 56 H (0-40) U/L Alkaline Phosphatase 64 (39-117) U/L Troponin I High Sens 4.7 (<3.5-35.0) ng/L Total Protein 8.2 H (6.5-8.0) g/dL Albumin 4.8 (3.5-5.0) g/dL <Kj Velazco DO - Last Filed: 08/31/22 17:25> Independent Interpretation I performed an independent interpretation of an: CT Scan <Kj Velazco DO - Last Filed: 08/31/22 17:25> External Record Review External record reviewed: Inpatient record <Kj Velazco DO - Last Filed: 08/31/22 17:25> Core Measures AMI core measures followed: Yes <Kj Velazco DO - Last Filed: 08/31/22 17:25> Discharge Plan Discharge Clinical Impression: Hypertension <SERJIO Winters - Last Filed: 08/31/22 13:00> Patient Disposition: Home, Self-Care <SERJIO Winters - Last Filed: 08/31/22 13:00> Instructions: Hypertension (ED), Chronic Hypertension (ED) <SERJIO Winters - Last Filed: 08/31/22 13:00> Additional Instructions: Your seen in the emergency department today for elevated blood pressure. You had labs CT scan that withdrawal normal. Please call follow-up with her doctor if you have any other concerns please do not hesitate to come back to the emergency department. <SERJIO Winters - Last Filed: 08/31/22 13:00> Prescriptions: No Action naproxen [Naprosyn] 500 mg tablet 500 mg PO BID Qty: 20 0RF lisinopril 20 mg tablet 20 mg PO DAILY Qty: 30 0RF lisinopril 40 mg tablet 40 mg PO DAILY Qty: 90 3RF hydrochlorothiazide 12.5 mg tablet 12.5 mg PO QAM Qty: 90 2RF <SERJIO Winters - Last Filed: 08/31/22 13:00>
--- NOTE | 2022-08-31 12:59 | ECG_ITS ---
Test Reason : HYPERTENSION Blood Pressure : / mmHG Vent. Rate : 082 BPM Atrial Rate : 082 BPM P-R Int : 148 ms QRS Dur : 094 ms QT Int : 360 ms P-R-T Axes : 056 004 017 degrees QTc Int : 420 ms Normal sinus rhythm with sinus arrhythmia Minimal voltage criteria for LVH, may be normal variant ( R in aVL ) Borderline ECG When compared with ECG of 18-AUG-2022 15:32, Nonspecific T wave abnormality no longer evident in Lateral leads Referred By: Arya Bourgeois Electronically Signed By:FAITH HERNANDEZ MD
[2022-08-31 13:17] LABS: MANUAL DIFF FLAG NO
[2022-08-31 13:18] LABS: Basophils Absolute Auto 0.1 X10*3/uL (0.0-0.2); Basophils Percent Auto 0.6 % (0-2); Eosinophils Absolute Auto 0.1 X10*3/uL (0.0-0.4); Eosinophils Percent Auto 1.1 % (0-4); Hematocrit 45.3 % (42.0-52.0); Hemoglobin 15.4 g/dl (14.0-18.0); Imm Gran Abs Auto 0.01 X10*3/uL (0.00-0.03); Imm Gran Pct Auto 0.1 % (0.0-0.4); Lymphocytes Absolute Auto 1.5 X10*3/uL (1.2-4.9); Lymphocytes Percent Auto 18.9 % (20-40); Mean Corpuscular Hemoglobin 32.8 pg (27.0-33.0); Mean Corpuscular Volume 96.4 fL (80.0-98.0); Mean Platelet Volume 10.1 fL (9.4-12.4); Monocytes Absolute Auto 0.4 X10*3/uL (0.1-1.2); Monocytes Percent Auto 5.2 % (2-11); Neutrophils Percent Auto 74.1 % (45-73); Platelet Count 259 X10*3/uL (160-400); Red Cell Distribution Width 11.8 % (11.0-16.0); White Blood Count 8.1 X10*3/uL (4.8-10.8)
[2022-08-31 13:35] LABS: Alanine Aminotransferase 56 U/L (0-40); Albumin Level 4.8 g/dL (3.5-5.0); Alkaline Phosphatase 64 U/L (39-117); Anion Gap 14 (12-20); Aspartate Amino Transferase 37 U/L (5-37); Bilirubin Total 0.6 mg/dL (0.0-1.0); Blood Urea Nitrogen 14 mg/dL (9-16); Calcium 9.8 mg/dL (8.4-10.2); Carbon Dioxide 24 mmol/L (22-29); Chloride 105 mmol/L (96-108); Creatinine Clr Calc Pharmacy 80.6; Estimated Glomerular Filt Rate > 60; Glucose Random 105 mg/dL (60-115); Potassium 5.1 mmol/L (3.3-5.1); Sodium 138 mmol/L (135-145); Total Protein 8.2 g/dL (6.5-8.0)
[2022-08-31 13:41] LABS: Troponin-I High Sensitivity 4.7 ng/L (<3.5-35.0)
[2022-08-31 17:16] VITALS: BP 175/87; PULSE 81; RESP 16; O2SAT 98
--- NOTE | 2022-08-31 17:21 | PC.NURSE ---
pt brought in from waiting room, blood pressure still elevated but improving slightly. Pt reports having no pain, no dizziness and offers no other complaints. Pt is resting comfortably at this time. Pt reports taking his Lisinopril 40mg today, was seen here recently for similar situation
== END 2022-08-31 17:33 | disposition home or self-care (01) ==
PROVIDERS: Physician Assistant; Emergency Provider Student in an Organized Health Care Education/Training Program
DX: I10 Essential (primary) hypertension (principal)
CPT/HCPCS: 36415; 70450; 80053; 83735; 84484; 85025; 93005; 99284